=== PATIENT | female | born 1985 | race Caucasian/White ===

== ENCOUNTER 2016-05-21 18:35 | Emergency (ER) | payer BC, OTHER ==
[2016-05-21 18:44] VITALS: BP 144/79
[2016-05-21] MEDS ORDERED: Tetan/Diph/Pertus SYR(Tdap)* 0.5 ML SYR(BOOSTRIX) use SYR IM ONE (18:54)
[2016-05-21 19:58] LABS: ALT 52 U/L (7-52); AST 37 U/L (13-39); Albumin 4.8 g/dL (3.2-5.2); Alkaline Phosphatase 70 U/L (34-104); Anion Gap 7 mmol/L (2-11); BUN/Creatinine Ratio 18.9 (8-20); Blood Urea Nitrogen 17 mg/dL (6-24); CO2 Carbon Dioxide 26 mmol/L (22-32); Calcium 9.7 mg/dL (8.6-10.3); Chloride 102 mmol/L (101-111); EGFR African American 95.9 (>60); EGFR Non-African American 74.6 (>60); Globulin 3.1 g/dL (2-4); Glucose 88 mg/dL (70-100); Potassium 3.9 mmol/L (3.5-5.0); Sodium 135 mmol/L (133-145); Total Protein 7.9 g/dL (6.4-8.9)
[2016-05-21 20:05] LABS: Manual Entry Verification MD; Rapid HIV INT CONT QC Line Present; Rapid HIV Kit Lot# F190062
--- NOTE | 2016-05-21 23:10 | ED ---
- HPI Summary HPI Summary: 30 yr old female had needlestick after obtaining blood from patient, while putting butterfly needle into sharps container, hit edge of container and needle stuck into L palm. + bleeding, washed with soap, water for > 1 minute, no symptoms, no prior PMH no infectious disease. - History of Current Complaint Chief Complaint: EDExposureBodyFluid Stated Complaint: NEEDLESTICK Time Seen by Provider: 05/21/16 18:50 Date of Incident: 05/21/16 Time of Incident: 17:30 Job Performing at Time of Incident: nurse Mechanism of Injury: butterfly needlestick Needlestick: Hollow Needle Blood on Needle: Yes Depth of Needlestick: Puncture Bleeding at Site: Yes Body Fluid Exposure: Blood Treatment EQUIPMENT MECHANIC: Cleaned Wound PMH/Surg Hx/FS Hx/Imm Hx Previously Healthy: Yes Endocrine/Hematology History: Denies: Hx Diabetes, Hx Thyroid Disease Cardiovascular History: Denies: Hx Hypertension Respiratory History: Denies: Hx Asthma, Hx Chronic Obstructive Pulmonary Disease (COPD) GI History: Denies: Hx Ulcer Infectious Disease History: No Infectious Disease History: Denies: Hx Clostridium Difficile, Hx Hepatitis, Hx Human Immunodeficiency Virus (HIV), Hx of Known/Suspected MRSA, Hx Shingles, Hx Tuberculosis, Hx Known/ Suspected VRE, Hx Known/Suspected VRSA, History Other Infectious Disease, Traveled Outside the [place] in Last 30 Days - Family History Known Family History: Positive: None - Social History Alcohol Use: Rare Substance Use Type: Reports: None Smoking Status (MU): Former Smoker Type: Cigarettes Amount Used/How Often: once a week Have You Smoked in the Last Year: Yes Review of Systems All Other Systems Reviewed And Are Negative: Yes Physical Exam Triage Information Reviewed: Yes Vital Signs On Initial Exam: Initial Vitals Temp Pulse Resp BP Pulse Ox 97.8 F 74 16 144/79 99 05/21/16 18:41 05/21/16 18:41 05/21/16 18:41 05/21/16 18:41 05/21/16 18:41 Vital Signs Reviewed: Yes Appearance: Positive: Well-Appearing, No Pain Distress, Well-Nourished Skin: Positive: Warm, Skin Color Reflects Adequate Perfusion, Other - small puncture site on l palm, no erythema drainage Head/Face: Positive: Normal Head/Face Inspection Diagnostics - Vital Signs Vital Signs Temp Pulse Resp BP Pulse Ox 05/21/16 18:41 97.8 F 74 16 144/79 99 - Laboratory Lab Results: Lab Results 05/21/16 05/21/16 Range/Units 18:55 18:55 Sodium 135 (133-145) mmol/L Potassium 3.9 (3.5-5.0) mmol/L Chloride 102 (101-111) mmol/L Carbon Dioxide 26 (22-32) mmol/L Anion Gap 7 (2-11) mmol/L BUN 17 (6-24) mg/dL Creatinine 0.90 (0.51-0.95) mg/dL Est GFR ( Amer) 95.9 (>60) Est GFR (Non-Af Amer) 74.6 (>60) BUN/Creatinine Ratio 18.9 (8-20) Glucose 88 (70-100) mg/dL Calcium 9.7 (8.6-10.3) mg/dL Total Bilirubin 0.70 (0.2-1.0) mg/dL AST 37 (13-39) U/L ALT 52 (7-52) U/L Alkaline Phosphatase 70 (34-104) U/L Total Protein 7.9 (6.4-8.9) g/dL Albumin 4.8 (3.2-5.2) g/dL Globulin 3.1 (2-4) g/dL Albumin/Globulin Ratio 1.5 (1-3) Beta HCG, Quant < 0.60 mIU/mL Hepatitis B Antibody Pending Hep Bs Antigen Pending Hep Bs Antibody, Quant Pending Hepatitis C Antibody Pending HIV 1&2 Antibody Rapid Nonreactive (Nonreactive) Result Diagrams: 05/21/16 18:55 Lab Statement: Any lab studies that have been ordered have been reviewed, and results considered in the medical decision making process. Needlestick Course/Dx - Course Course Of Treatment: Discussed HIV prophylaxis, testing of both patient and nurse done, will follow up with HR in AM to determine TDAP date. No other questions/ concerns. - Diagnoses Provider Diagnoses: Needlestick injury accident Discharge - Discharge Plan Condition: Good Disposition: HOME Patient Education Materials: Needle Stick Injuries (ED) Forms: *Work Release Referrals: Jak Norris MD [Primary Care Provider] - Additional Instructions: - Follow up with HR with regards to Tdap - Return to ER if you want HIV prophylaxis- within 72 hours - Follow up for blood test results
== END 2016-05-21 19:28 | disposition home or self-care (01) ==
LOC: ED 18:35
DX: S61.432A Puncture wound without foreign body of left hand, initial encounter (principal); W46.1XXA Contact with contaminated hypodermic needle, initial encounter; Y93.9 Activity, unspecified; Y92.239 Unspecified place in hospital as the place of occurrence of the external cause; Z87.891 Personal history of nicotine dependence
CPT/HCPCS: 36415; 80053; 84702; 86703; 86706; 86803; 87340; 90471; 99281

== ENCOUNTER 2016-08-21 10:14 | Emergency (ER) | payer BC ==
[2016-08-21 10:34] VITALS: BP 124/73
--- NOTE | 2016-08-21 10:50 | UC ---
Throat Pain/Nasal Nacho HPI - HPI Summary HPI Summary: has had a cough and sore throat for 1 week now lost her voice, feels like she is swallowing razor blades, denies fever. - History of Current Complaint Chief Complaint: UCRespiratory Stated Complaint: SORE THROAT Time Seen by Provider: 08/21/16 10:24 Hx Obtained From: Patient Hx Last Menstrual Period: 08/18/16 ?: No Onset/Duration: Sudden Onset, Lasting Days Severity: Moderate Cough: Nonproductive Associated Signs & Symptoms: Positive: Dysphagia, Hoarseness - Epiglottits Risk Factors Epiglottis Risk Factors: Negative - Allergies/Home Medications Allergies/Adverse Reactions: Allergies Allergy/AdvReac Type Severity Reaction Status Date / Time No Known Allergies Allergy Verified 08/21/16 10:27 PMH/Surg Hx/FS Hx/Imm Hx Previously Healthy: Yes Endocrine History Of: Denies: Diabetes, Thyroid Disease Cardiovascular History Of: Denies: Cardiac Disorders, Hypertension Respiratory History Of: Denies: COPD, Asthma GI/ History Of: Denies: Ulcer - Surgical History Surgical History: None - Family History Known Family History: Positive: None Negative: Cardiac Disease, Hypertension - Social History Alcohol Use: Rare Substance Use Type: None Smoking Status (MU): Former Smoker Type: Cigarettes Amount Used/How Often: once a week Have You Smoked in the Last Year: Yes When Did the Patient Quit Smoking/Using Tobacco: 2013 - Immunization History Most Recent Influenza Vaccination: 2015 Most Recent Tetanus Shot: 2012 Most Recent Pneumonia Vaccination: N/A Review of Systems Constitutional: Negative Skin: Negative Eyes: Negative ENT: Sore Throat Respiratory: Cough Cardiovascular: Negative Gastrointestinal: Negative Genitourinary: Negative Motor: Negative Neurovascular: Negative Musculoskeletal: Negative Neurological: Negative Psychological: Negative All Other Systems Reviewed And Are Negative: Yes Physical Exam Triage Information Reviewed: Yes Appearance: Well-Nourished, Ill-Appearing, Pain Distress Vital Signs: Initial Vital Signs Temp 97.9 F 08/21/16 10:28 Pulse 77 08/21/16 10:28 Resp 18 08/21/16 10:28 BP 124/73 08/21/16 10:28 Pulse Ox 98 08/21/16 10:28 Vital Signs Reviewed: Yes Eye Exam: Normal Eyes: Positive: Conjunctiva Clear ENT: Positive: Pharyngeal erythema, Tonsillar swelling, Tonsillar exudate Dental Exam: Normal Neck exam: Normal Neck: Positive: Supple, Nontender, Enlarged Nodes @ - no cervical lymphadenopathy Respiratory Exam: Normal Respiratory: Positive: Chest non-tender, Lungs clear, Normal breath sounds Cardiovascular Exam: Normal Cardiovascular: Positive: RRR, No Murmur, Pulses Normal Abdominal Exam: Normal Abdomen Description: Positive: Nontender, No Organomegaly, Soft Bowel Sounds: Positive: Present Musculoskeletal Exam: Normal Musculoskeletal: Positive: Strength Intact, ROM Intact, No Edema Neurological Exam: Normal Neurological: Positive: Alert, Muscle Tone Normal Psychological Exam: Normal Skin Exam: Normal Throat Pain/Nasal Course/Dx - Course Course Of Treatment: hx obtained, exam performed, meds reviewed, rapid strep and flu obtained. prednisone prescribed for pharyngeal inflammation - Differential Dx/Diagnosis Differential Diagnosis/HQI/PQRI: Influenza, Laryngitis, Otitis Media, Pharyngitis, Sinusitis, URI Provider Diagnoses: laryngitis. pharyngitis Discharge - Discharge Plan Condition: Stable Disposition: HOME Prescriptions: predniSONE TAB* [Deltasone TAB*] 40 mg PO DAILY #10 tab Patient Education Materials: Laryngitis (ED) Additional Instructions: 1. Take the prednisone as prescribed to reduce the inflammation in the throat. 2. warm fluids frequently throughout the day. 3. tylenol or ibuprofen for pain 4. minimize talking to allow laryngitis to heal faster.
== END 2016-08-21 11:09 | disposition home or self-care (01) ==
LOC: UCEAST 10:14
DX: J04.0 Acute laryngitis (principal); J02.9 Acute pharyngitis, unspecified; Z87.891 Personal history of nicotine dependence
CPT/HCPCS: 87502; 87651; 99212; G0463

== ENCOUNTER 2016-08-23 09:04 | Emergency (ER) | payer BC ==
[2016-08-23 09:08] VITALS: BP 148/89
--- NOTE | 2016-08-23 09:31 | ED ---
Throat Pain/Nasal Congestion - History of Current Complaint Chief Complaint: EDThroatPain Time Seen by Provider: 08/23/16 09:14 - Allergies/Home Medications Allergies/Adverse Reactions: Allergies Allergy/AdvReac Type Severity Reaction Status Date / Time No Known Allergies Allergy Verified 08/21/16 10:27 PMH/Surg Hx/FS Hx/Imm Hx Endocrine/Hematology History: Denies: Hx Diabetes, Hx Thyroid Disease Cardiovascular History: Denies: Hx Hypertension Respiratory History: Denies: Hx Asthma, Hx Chronic Obstructive Pulmonary Disease (COPD) GI History: Denies: Hx Ulcer Infectious Disease History: No Infectious Disease History: Denies: Hx Clostridium Difficile, Hx Hepatitis, Hx Human Immunodeficiency Virus (HIV), Hx of Known/Suspected MRSA, Hx Shingles, Hx Tuberculosis, Hx Known/ Suspected VRE, Hx Known/Suspected VRSA, History Other Infectious Disease, Traveled Outside the [place] in Last 30 Days - Family History Known Family History: Positive: None Negative: Cardiac Disease, Hypertension - Social History Alcohol Use: Rare Substance Use Type: Reports: None Smoking Status (MU): Former Smoker Type: Cigarettes Amount Used/How Often: once a week Have You Smoked in the Last Year: Yes Physical Exam Vital Signs On Initial Exam: Initial Vitals Temp Pulse Resp BP Pulse Ox 98.4 F 83 18 148/89 100 08/23/16 09:05 08/23/16 09:05 08/23/16 09:05 08/23/16 09:05 08/23/16 09:05 Diagnostics - Vital Signs Vital Signs Temp Pulse Resp BP Pulse Ox 08/23/16 09:12 98.4 F 83 18 148/89 148 08/23/16 09:05 98.4 F 83 18 148/89 100 - Laboratory Lab Statement: Any lab studies that have been ordered have been reviewed, and results considered in the medical decision making process. EENT Course/Dx - Differential Diagnoses Differential Diagnoses: Laryngitis, Pharyngitis, URI/Bronchitis - Diagnoses Provider Diagnoses: Pharyngitis, Laryngitis, acute Discharge - Discharge Plan Condition: Stable Disposition: HOME Patient Education Materials: Pharyngitis (ED), Laryngitis (ED) Referrals: Jak Norris MD [Primary Care Provider] - Additional Instructions: Take prescribed prednisone given to you at urgent care for the next 3 days. Continue use of salt water swishes, drinking plenty of fluids, chloraseptic spray Recommend waiting one day until trying antibiotics. Take probiotics in between doses to replenish normal edmar.
[2016-08-23] MEDS ORDERED: Penicillin G Benzathine 2.4MU* 2,400,000 UNITS/4 ML SYR IM ONE (09:36)
== END 2016-08-23 11:08 | disposition home or self-care (01) ==
LOC: ED 09:04
DX: J02.9 Acute pharyngitis, unspecified (principal); J04.0 Acute laryngitis
CPT/HCPCS: 99281

== ENCOUNTER 2019-06-16 18:42 | Emergency (ER) | payer BC ==
[2019-06-16 19:01] VITALS: BP 136/86
--- NOTE | 2019-06-16 19:09 | UC ---
Throat Pain/Nasal Nacho HPI - HPI Summary HPI Summary: 33-year-old woman comes in with a chief complaint of the first or tract infection symptoms sore throat and laryngitis. Patient has had 12 days of symptoms. most recently patient's losing her voice with laryngitis. No recent fevers. - History of Current Complaint Chief Complaint: UCRespiratory Stated Complaint: SORE THROAT Time Seen by Provider: 06/16/19 18:59 Hx Last Menstrual Period: 08/18/16 Pain Intensity: 0 - Allergies/Home Medications Allergies/Adverse Reactions: Allergies Allergy/AdvReac Type Severity Reaction Status Date / Time No Known Allergies Allergy Verified 06/16/19 19:01 PMH/Surg Hx/FS Hx/Imm Hx Previously Healthy: Yes - Surgical History Surgical History: None Surgery Procedure, Year, and Place: none - Family History Known Family History: Positive: None Negative: Cardiac Disease, Hypertension - Social History Alcohol Use: Rare Substance Use Type: None Smoking Status (MU): Former Smoker Type: Cigarettes Amount Used/How Often: once a week Have You Smoked in the Last Year: Yes When Did the Patient Quit Smoking/Using Tobacco: 2014 - Immunization History Most Recent Influenza Vaccination: 2015 Most Recent Tetanus Shot: 2012 Most Recent Pneumonia Vaccination: N/A Review of Systems All Other Systems Reviewed And Are Negative: Yes Constitutional: Positive: Other - SEE HPI Skin: Positive: Negative Eyes: Positive: Negative ENT: Positive: Sore Throat, Nasal Discharge Respiratory: Positive: Cough Cardiovascular: Positive: Negative Gastrointestinal: Positive: Negative Motor: Positive: Negative Neurovascular: Positive: Negative Musculoskeletal: Positive: Negative Neurological: Positive: Negative Psychological: Positive: Negative Is Patient Immunocompromised?: No Physical Exam Triage Information Reviewed: Yes Appearance: Well-Appearing, No Pain Distress, Well-Nourished Vital Signs: Initial Vital Signs Temp 97.1 F 06/16/19 18:58 Pulse 97 06/16/19 18:58 Resp 20 06/16/19 18:58 BP 136/86 06/16/19 18:58 Pulse Ox 97 06/16/19 18:58 Vital Signs Reviewed: Yes Eye Exam: Normal Eyes: Positive: Conjunctiva Clear ENT: Positive: Pharyngeal erythema, Nasal congestion, Nasal drainage, TMs normal , Uvula midline - Oropharynx open Neck: Positive: Supple Respiratory: Positive: Lungs clear, Normal breath sounds, No respiratory distress Cardiovascular: Positive: RRR Musculoskeletal: Positive: Strength Intact, ROM Intact Neurological: Positive: Alert, Muscle Tone Normal Psychological: Positive: Age Appropriate Behavior Skin Exam: Normal Throat Pain/Nasal Course/Dx - Course Course Of Treatment: Duty symptoms being greater than 10 days and the higher probability of bacterial infection we'll treat with amoxicillin. We'll treat with prednisone to be used as needed to help with the laryngitis. No evidence of airway obstruction by history or her exam today. Patient is to get reevaluated if not improving or worse. - Differential Dx/Diagnosis Provider Diagnosis: Laryngitis Discharge ED - Sign-Out/Discharge Documenting (check all that apply): Patient Departure All imaging exams completed and their final reports reviewed: No Studies - Discharge Plan Condition: Stable Disposition: HOME Prescriptions: Amoxicillin PO (*) [Amoxicillin 875 MG (*)] 875 mg PO BID #20 tab predniSONE 20 mg TAB [Deltasone 20 MG TAB*] 40 mg PO DAILY #10 tab Patient Education Materials: Laryngitis (ED) Referrals: Jose De Jesus CHAU,ISAC Morillo [Primary Care Provider] - Additional Instructions: FOLLOW UP WITH YOUR DOCTOR IF NOT COMPLETELY IMPROVED. GET REEVALUATED SOONER IF NOT IMPROVED OR WORSE OR ANY QUESTIONS OR CONCERNS. - Billing Disposition and Condition Condition: STABLE Disposition: Home
== END 2019-06-16 19:10 | disposition home or self-care (01) ==
LOC: UCEAST 18:42
DX: J04.0 Acute laryngitis (principal); R09.89 Other specified symptoms and signs involving the circulatory and respiratory systems; Z87.891 Personal history of nicotine dependence
CPT/HCPCS: 99212; G0463